=== PATIENT | female | born 1995 | race African-American/Black ===

== ENCOUNTER 2025-04-28 10:51 | Emergency (ER) | payer MEDICAID ==
[~2025-04-28] VITALS: Ht 165.1 cm; Wt 67.3 kg
[2025-04-28 11:01] VITALS: TEMP 98.2
[2025-04-28 11:21] LABS: PLATELET COUNT (AUTO) 363 K/uL (150-450); RED BLOOD CELL COUNT(AUTO) 4.08 MIL/uL (4.00-5.20); RED CELL DISTRIBUTION WIDTH 13.0 % (11.5-14.5); WHITE BLOOD COUNT (AUTO) 5.1 K/uL (4.5-11.0)
[2025-04-28 12:15] VITALS: BP 124/74; PULSE 78; RESP 17; O2SAT 99
== END 2025-04-28 12:45 | disposition home or self-care (01) ==
LOC: EMS 10:55
DX: N93.9 Abnormal uterine and vaginal bleeding, unspecified (principal); N89.8 Other specified noninflammatory disorders of vagina; Z98.890 Other specified postprocedural states
CPT/HCPCS: 84702; 85025; 99283